=== PATIENT | female | born 1975 | race Hispanic/Latino ===

== ENCOUNTER → 2022-08-08 | Outpatient (CLI) | payer MEDICAID ==
[~2022-08-08] VITALS: Ht 160 cm; Wt 98.1 kg
[~2022-08-08] MED LIST: AMIT25TA9 PO; CEFAZOLIN SODIUM 2 GM VIAL IVPB SCH; FERR-72 PO; FOLIC ACID PO; LEVO-170 PO; LORA10TA7 PO; [UNRECOGNIZED DRUG - CODE] PO
[2022-08-08 12:38] LABS: BASOPHILS % (AUTO) 0.3 % (0.0-5.0); EOSINOPHILS % (AUTO) 2.9 % (0.0-8.0); HEMATOCRIT 27.8 % (36-48); LYMPHOCYTES % (AUTO) 41.4 % (21.0-51.0); MEAN CORPUSCULAR HEMOGLOBIN 23.7 pg (27.0-33.0); MEAN CORPUSCULAR HGB CONC 28.8 g/dL (32.0-36.0); MEAN CORPUSCULAR VOLUME 82.2 fL (79-99); MONOCYTES % (AUTO) 6.9 % (3.0-13.0); NEUTROPHILS % (AUTO) 48.5 % (40.0-77.0); PLATELET COUNT (AUTO) 582 K/uL (130-400); RED BLOOD CELL COUNT(AUTO) 3.38 MIL/uL (4.00-5.50); RED CELL DISTRIBUTION WIDTH 21.3 % (11.0-15.5); WHITE BLOOD COUNT (AUTO) 3.5 K/uL (4.8-10.8)
[2022-08-08 12:44] LABS: APPEARANCE,URINE CLEAR (CLEAR); BILIRUBIN,URINE NEGATIVE (NEGATIVE); COLOR,URINE LIGHT-YELLOW (YELLOW); GLUCOSE, URINE (UA) NEGATIVE (NEGATIVE); KETONES,URINE NEGATIVE (NEGATIVE); LEUKOCYTE ESTERASE ,URINE NEGATIVE Leu/uL (NEGATIVE); NITRATE,URINE NEGATIVE (NEGATIVE); OCCULT BLOOD,URINE MODERATE (NEGATIVE); PH,URINE 6.5 (5.0-8.0); PROTEIN,URINE NEGATIVE (NEGATIVE); UROBILINOGEN,URINE 0.2 mg/dL (0.2-1.0)
[2022-08-08 12:52] VITALS: BP 147/75
[2022-08-08 13:12] LABS: BACTERIA,URINE FEW /HPF (None Seen); MUCUS,URINE RARE LPF (None Seen); RBC,URINE 0-1 /HPF (0-1); SQUAMOUS EPITHELIAL CELL,UR RARE /HPF (0-2)
== END | disposition home or self-care (01) ==
LOC: DAH 10:00 → EDSTATUS 12:30
PROVIDERS: ATTEND Obstetrics & Gynecology
DX: Z01.818 Encounter for other preprocedural examination (principal); N92.1 Excessive and frequent menstruation with irregular cycle; U07.1 COVID-19; D25.9 Leiomyoma of uterus, unspecified; N85.2 Hypertrophy of uterus; Z53.8 Procedure and treatment not carried out for other reasons
CPT/HCPCS: 86900; 87426; 84703; 85025; 86850; 86901; 81001; 36415; A6260

== ENCOUNTER 2022-12-28 14:07 | Emergency (ER) | payer MEDICAID ==
[~2022-12-28] VITALS: Ht 160 cm; Wt 92.5 kg
[~2022-12-28 14:07] MED LIST changes: -CEFAZOLIN SODIUM 2 GM VIAL IVPB SCH
[2022-12-28 14:08] VITALS: BP 134/77; PULSE 107; RESP 20
[2022-12-28 14:46] LABS: BASOPHILS % (AUTO) 0.3 % (0.0-5.0); EOSINOPHILS % (AUTO) 1.3 % (0.0-8.0); LYMPHOCYTES % (AUTO) 10.9 % (21.0-51.0); MEAN CORPUSCULAR HGB CONC 30.4 g/dL (32.0-36.0); MEAN CORPUSCULAR VOLUME 75.5 fL (79-99); MONOCYTES % (AUTO) 3.5 % (3.0-13.0); NEUTROPHILS % (AUTO) 83.6 % (40.0-77.0); PLATELET COUNT (AUTO) 467 K/uL (130-400); RED BLOOD CELL COUNT(AUTO) 2.74 MIL/uL (4.00-5.50); RED CELL DISTRIBUTION WIDTH 19.2 % (11.0-15.5); WHITE BLOOD COUNT (AUTO) 7.9 K/uL (4.8-10.8)
[2022-12-28 14:51] LABS: HEMATOCRIT 20.7 % (36-48)
[2022-12-28 14:54] LABS: CREATININE 0.7 mg/dL (0.5-1.5)
[2022-12-28 14:59] LABS: ALBUMIN 3.4 g/dL (3.5-5.0); TOTAL PROTEIN, SERUM 7.6 g/dL (6.0-8.3)
[2022-12-28] MEDS ORDERED: ESTROGENS,CONJUGATED 25 MG/VIAL IV SCH (17:00)
[2022-12-28] MEDS ORDERED: MEDR10TA PO (17:03)
== END 2022-12-28 19:11 | disposition home or self-care (01) ==
LOC: EDH 14:07
DX: N93.9 Abnormal uterine and vaginal bleeding, unspecified (principal); D25.9 Leiomyoma of uterus, unspecified; D62 Acute posthemorrhagic anemia; Z90.49 Acquired absence of other specified parts of digestive tract
CPT/HCPCS: 99285; 36430; 96374; 76856; 80053; 84703; 85025; 86850; 86900; 86901; 86923 ×2; 36415; J1410; P9016